=== PATIENT | female | born 1945 ===

== ENCOUNTER 2021-08-19 16:54 | Inpatient (IN) | payer SELFPAY ==
--- NOTE | 2021-08-19 17:05 | Emergency Department Report ---
ED General Adult HPI - General Chief complaint: Weakness Stated complaint: HYPERGLYCEMIA/WEAKNESS Time Seen by Provider: 08/19/21 17:02 Source: patient, family, EMS (Verbal report received from emergency medical services. EMS documentation not available at time of chart dictation ), RN notes reviewed Mode of arrival: Stretcher Limitations: Language Barrier (Patient requests that grandson translate) - History of Present Illness Initial comments: The patient was evaluated in the emergency department for symptoms described in the history of present illness. He/she was evaluated in the context of the global COVID-19 pandemic, which necessitated consideration that the patient might be at risk for infection with the virus that causes COVID-19. Inst itutional protocols and algorithms that pertain to the evaluation of patients at risk for COVID-19 are in a state of rapid change based on information released by regulatory bodies including the CDC and federal and state organizations. These policies and algorithms were followed during the patient's care in the emergency department. Please note that these policies, procedures and recommendations changed on a rapid basis. The patient is accompanied by her grandson, and gives consent and request that her grandson translate for her. This patient is a 76-year-old female, visiting from [facility], who is reportedly flying in from [place] to [place] today. Her past medical history includes h ypertension, high cholesterol and diabetes. She does not know the names of all the medications that she takes. She is reportedly COVID-19 vaccinated. History obtained from patient, grandson, and from EMS. Patient reportedly felt weak and dizzy earlier on today. The patient complains of mild headache. She denies chest pain. She denies abdominal pain. She denies loss of vision. She denies hematemesis and bright red blood per rectum. She denies focal extremity weakness/numbness. As per verbal report from EMS, patient had a high blood sugar level. They also report the patient's heart rate was fluctuating between the 20s and 80s. They were not able to capture the patient's bradycardia. Patient does not specifically recall the name of her antihypertensive medication. She appears to be on a statin, and possibly metformin. -: This afternoon - Related Data Allergies Allergy/AdvReac Type Severity Reaction Status Date / Time No Known Allergies Allergy Verified 08/19/21 19:30 ED Review of Systems ROS: Stated complaint: HYPERGLYCEMIA/WEAKNESS Other details as noted in HPI Constitutional: malaise. denies: fever Eyes: denies: eye discharge ENT: denies: epistaxis Respiratory: denies: cough Cardiovascular: syncope (Lightheadedness and near syncope). denies: chest pain Gastrointestinal: denies: abdominal pain, hematemesis, melena, hematochezia Genitourinary: denies: dysuria Musculoskeletal: arthralgia Neurological: headache, weakness Hematological/Lymphatic: denies: easy bleeding ED Physical Exam - General Limitations: Language Barrier General appearance: alert, in no apparent distress - Head Head exam: Present: atraumatic, normocephalic - Eye Eye exam: Present: normal appearance, EOMI, other (Visual acuity is intact to finger counting and color perception at a close distance). Absent: nystagmus - ENT ENT exam: Present: normal exam, normal orophraynx, mucous membranes moist, normal external ear exam - Neck Neck exam: Present: normal inspection, full ROM. Absent: tenderness, meningismus - Respiratory Respiratory exam: Present: normal lung sounds bilaterally. Absent: respiratory distress, wheezes, rales, rhonchi, stridor, decreased breath sounds - Cardiovascular Cardiovascular Exam: Present: regular rate, normal rhythm, normal heart sounds. Absent: bradycardia, tachycardia, irregular rhythm, systolic murmur, diastolic murmur, rubs, gallop - GI/Abdominal GI/Abdominal exam: Present: soft. Absent: distended, tenderness, guarding, rebound, rigid, pulsatile mass - Extremities Exam Extremities exam: Present: normal inspection, full ROM, other (2+ pulses noted in the bilateral upper and lower extremities. There is no palpable cord. negative Homans sign. Muscular compartments are soft. The pelvis is stable.). Absent: pedal edema, calf tenderness - Back Exam Back exam: Present: normal inspection. Absent: tenderness, CVA tenderness (R), CVA tenderness (L), paraspinal tenderness, vertebral tenderness - Neurological Exam Neurological exam: Present: alert, other (There is no facial droop. The tongue is midline. EOMI. 5 out of 5 strength in 4 extremities) - Psychiatric Psychiatric exam: Present: flat affect - Skin Skin exam: Present: warm, dry, intact, normal color. Absent: rash ED Course Vital Signs 08/19/21 08/19/21 08/19/21 17:50 18:01 18:07 Temperature 97.2 F L Pulse Rate 79 Respiratory 22 Rate Blood Pressure Blood Pressure 144/76 [Left] O2 Sat by Pulse 98 99 98 Oximetry 08/19/21 08/19/21 08/19/21 18:15 18:31 18:45 Temperature Pulse Rate 66 72 72 Respiratory 17 18 15 Rate Blood Pressure 144/76 146/76 121/84 Blood Pressure [Left] O2 Sat by Pulse 99 97 98 Oximetry 08/19/21 08/19/21 08/20/21 19:01 19:15 00:57 Temperature Pulse Rate 71 71 Respiratory 19 17 Rate Blood Pressure 153/82 161/82 Blood Pressure [Left] O2 Sat by Pulse 98 99 88 Oximetry - Reevaluation(s) Reevaluation #1: 08/19/21 17:43 Differential diagnosis, including but not limited to: Orthostasis, vagal event, structural cardiac disease, anemia, acute coronary syndrome, migraine headache, tension headache, cluster headache, intracranial hemorrhage, pulmonary embolism Assessment and plan 76-year-old elderly female with multiple cardiovascular risk factors, presenting with lightheadedness, dizziness and near syncope. Her physical exam/neurologic exam is nondiagnostic and nonfocal/unremarkable. Blood pressure and heart rate are acceptable at this time. Obtain appropriate laboratory studies, repeat EKG, CT scan of the brain, CT scan of the chest, and reassess. I discussed this with the patient and her grandson. They articulated understanding. They are agreeable to the plan of care 08/19/21 19:59 Family member at the bedside, Ms. Tatianna Jameson; [phone] Patient also has a son by the name of Mr. Gerald Jameson [phone] Family members endorse that family lives in [place] and they would like to see about having the patient transferred to [facility] for convenience in close proximity to family Contacted [facility] transfer center. [facility] is full, with multiple pending admissions in the emergency room, and they are not able to accommodate an admission. We discussed this with the patient and her daughter. They are agreeable to admission and hospitalization. Patient's daughter has asked if a family member can stay with the patient overnight. Contacted nursing transfer and pumphouse operator chief, Ms. Junito Mckenna She advises that for tonight only, the patient can have a single adult return to vendor with her when she goes upstairs. While in the emergency room, she will be permitted guests as per our usual emergency medicine policy. Hospital physician, Dr. Wendy Chong to admit 08/19/21 20:44 ct scan brain negative for acute findings CT scan chest negative for pulmonary embolism or acute or emergent findings. Incidental findings noted. They can be followed up as an outpatient. Updated patient and daughter. Hospital team to admit. All questions answered. - EJ/Peripheral Line Arm R Time Out Performed: Yes Indications: multiple IV sites needed Skin Cleansed in Sterile Fashion: Yes Size: 20 Dressing Placed: Tegaderm Patient Tolerated Procedure: well ED Medical Decision Making - Lab Data Result diagrams: 08/20/21 05:42 08/20/21 05:42 Vital Signs 08/19/21 18:07 Temperature 97.2 F L Pulse Rate 79 Respiratory 22 Rate Blood Pressure 144/76 [Left] O2 Sat by Pulse 98 Oximetry Lab Results 08/19/21 Range/Units 17:20 VBG pH 7.315 L (7.320-7.420) Lab Results 08/19/21 08/19/21 08/19/21 Range/Units 17:20 17:20 17:20 WBC 12.3 H (4.5-11.0) K/mm3 RBC 3.84 (3.65-5.03) M/mm3 Hgb 11.6 (10.1-14.3) gm/dl Hct 34.8 (30.3-42.9) % MCV 91 (79-97) fl MCH 30 (28-32) pg MCHC 33 (30-34) % RDW 14.4 (13.2-15.2) % Plt Count 192 (140-440) K/mm3 PT 12.8 (12.2-14.9) Sec. INR 0.85 L (0.87-1.13) D-Dimer 1647.85 H (0-234) ng/mlDDU VBG pH (7.320-7.420) Sodium 137 (137-145) mmol/L Potassium 3.8 (3.6-5.0) mmol/L Chloride 102.1 (98-107) mmol/L Carbon Dioxide 24 (22-30) mmol/L Anion Gap 15 mmol/L BUN 29 H (7-17) mg/dL Creatinine 1.1 (0.6-1.2) mg/dL Estimated GFR 48 ml/min BUN/Creatinine Ratio 26 % Glucose 195 H (65-100) mg/dL Calcium 9.0 (8.4-10.2) mg/dL Magnesium 1.80 (1.7-2.3) mg/dL Total Bilirubin 0.40 (0.1-1.2) mg/dL AST 17 (5-40) units/L ALT 17 (7-56) units/L Alkaline Phosphatase 153 H (35-129) units/L Troponin T < 0.010 (0.00-0.029) ng/mL NT-Pro-B Natriuret Pep (0-900) pg/mL Total Protein 6.1 L (6.3-8.2) g/dL Albumin 3.6 L (3.9-5) g/dL Albumin/Globulin Ratio 1.4 % TSH (0.270-4.200) mlU/mL 08/19/21 08/19/21 08/19/21 Range/Units 17:20 17:20 17:20 WBC (4.5-11.0) K/mm3 RBC (3.65-5.03) M/mm3 Hgb (10.1-14.3) gm/dl Hct (30.3-42.9) % MCV (79-97) fl MCH (28-32) pg MCHC (30-34) % RDW (13.2-15.2) % Plt Count (140-440) K/mm3 PT (12.2-14.9) Sec. INR (0.87-1.13) D-Dimer (0-234) ng/mlDDU VBG pH 7.315 L (7.320-7.420) Sodium (137-145) mmol/L Potassium (3.6-5.0) mmol/L Chloride (98-107) mmol/L Carbon Dioxide (22-30) mmol/L Anion Gap mmol/L BUN (7-17) mg/dL Creatinine (0.6-1.2) mg/dL Estimated GFR ml/min BUN/Creatinine Ratio % Glucose (65-100) mg/dL Calcium (8.4-10.2) mg/dL Magnesium (1.7-2.3) mg/dL Total Bilirubin (0.1-1.2) mg/dL AST (5-40) units/L ALT (7-56) units/L Alkaline Phosphatase (35-129) units/L Troponin T (0.00-0.029) ng/mL NT-Pro-B Natriuret Pep 683.2 (0-900) pg/mL Total Protein (6.3-8.2) g/dL Albumin (3.9-5) g/dL Albumin/Globulin Ratio % TSH 4.980 H (0.270-4.200) mlU/mL - EKG Data -: EKG Interpreted by Wi EKG shows normal: sinus rhythm Rate: normal - EKG Data When compared to previous EKG there are: previous EKG unavailable 08/19/21 18:59 The EKG is interpreted at 17: 54 This is a sinus rhythm, with a rate of 79 bpm. There is a left axis deviation. There is left ventricular hypertrophy. The QTC is 5 2 1 ms. There is motion artifact. This is an abnormal EKG. This is not a STEMI. - Radiology Data Radiology results: pending, report reviewed, image reviewed CT head/brain wo con INDICATION / CLINICAL INFORMATION: 76 years Female; scales and near syncope. TECHNIQUE: Routine CT head without contrast. All CT scans at this location are performed using CT dose reduction for [email or web address] by means of automated exposure control. COMPARISON: None. FINDINGS: BRAIN / INTRACRANIAL CONTENTS: There is mild cerebral white matter disease most consistent with microvascular angiopathy. Is also mild cerebral atrophy with associated mild prominence of the ventricular system. The motion degrades the image quality. However, there is no clear CT evidence of acute intracranial hemorrhage or significant mass effect. ORBITS: No significant abnormality of visualized orbits. SINUSES / MASTOIDS: No significant abnormality in the visualized paranasal sinuses or mastoid air cells. CRANIOCERVICAL JUNCTION: No significant abnormality. ADDITIONAL FINDINGS: None. IMPRESSION: 1. 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 Signer Name: Evelio Thompson MD Signed: 08/19/2021 7:14 PM Workstation Name: [id number] CTA CHEST WITH IV CONTRAST INDICATION: near syncope, bradycardia, left axis deviation CONTRAST: 100 cc Omnipaque 350 IV COMPARISON: None available. Three-plane MIP reconstructions were produced. All CT scans at this location are performed using CT dose reduction for ALARA by means of automated exposure control. FINDINGS: Multiple old left rib fractures. No significant axillary or chest wall soft tissue abnormalities. Views of the upper abdomen show mild carmita lithiasis without acute change. Mild fatty infiltration of liver. Moderate coronary artery calcifications. No mediastinal or hilar masses. No obvious endobronchial lesions. No pneumothorax or pneumomediastinum. No pleural effusions. Lung almazan show bilateral atelectasis versus scarring, most no ticeable in the right lower lobe. Pneumonitis is not strongly favored. Minimal right upper lobe nodule measuring less than 3 mm on images 40 and 41 of series 2. Tiny density in the lower portion of the left major fissure unlikely to be significant. Aorta shows atherosclerotic changes. Aneurysmal dilatation is seen. The ascending aorta diameter is 4.3 cm, mid arch diameter 3 cm, mid descending diameter 3 cm, and diameter at the hiatus 3 cm. Abdominal aorta shows no aneurysmal dilatation though there is mild focal ectasia of the lower abdominal aorta to 2.5 cm. No evidence of dissection or other acute abnormality. Good filling of the visualized major branches. Good opacification of pulmonary arterial system. No convincing evidence of pulmonary thromboembolism. IMPRESSION: 1. No evidence of pulmonary thromboembolism 2. Atelectasis versus scarring as discussed above with pneumonitis is not strongly favored 3. Minimal pulmonary nodularity of unlikely significance 4. Aneurysmal dilatation of the ascending aorta without acute change seen INCIDENTAL PULMONARY NODULE RECOMMENDATIONS Solid Nodule size* <6 mm -- Single or Multiple - Low Risk Patient: No routine follow-up - High Risk Patient: Optional CT at 12 months Note These recommendations do not apply to lung cancer screening, patients with immunosuppression, or patients with known primary cancer. Note Newly detected indeterminate nodule in persons 35 years of age or older. Persons under the age of 35 should not receive follow-up unless there is a known primary cancer. Low Risk Patient -- minimal or absent history of smoking and of other known risk factors. High Risk Patient -- history of smoking or of other known risk factors. *Dimensions are average of long and short axes, rounded to the nearest millimeter. Based on 2017 Fleischner Society Guidelines found in Radiology 2017 284:228-243. htt ps://doi.[email or web address]/radiol.7026825212 Signer Name: Edgar Johnson MD Signed: 08/19/2021 7:38 PM Workstation Name: [id number] Critical care attestation.: If time is entered above; I have spent that time in minutes in the direct care of this critically ill patient, excluding procedure time. ED Disposition Clinical Impression: Near syncope, History of bradycardia Disposition: ADMITTED INPATIENT Is pt being admited?: Yes Condition: Good
[2021-08-19] MEDS ORDERED: ACETAMINOPHEN 325 MG TAB PO ONE (17:44)
[2021-08-19 18:10] LABS: Hematocrit 34.8 % (30.3-42.9); Hemoglobin 11.6 gm/dl (10.1-14.3); Mean Corpuscular HGB Conc 33 % (30-34); Mean Corpuscular Volume 91 fl (79-97); Platelet Count 192 K/mm3 (140-440); Red Blood Count 3.84 M/mm3 (3.65-5.03); Red Cell Distribution Width 14.4 % (13.2-15.2)
[2021-08-19 18:18] LABS: INR 0.85 (0.87-1.13)
[2021-08-19 18:35] LABS: Alanine Aminotransferase 17 units/L (7-56); Albumin 3.6 g/dL (3.9-5); BUN/Creatinine Ratio 26; Blood Urea Nitrogen 29 mg/dL (7-17); Hemolysis Index 3
[2021-08-19] MEDS ORDERED: SODIUM CHLORIDE 0.9% 500 ML 500 ML IV ONE (18:58)
--- NOTE | 2021-08-19 20:18 | Cat Scan Report ---
CT head/brain wo con INDICATION / CLINICAL INFORMATION: 76 years Female; scales and near syncope. TECHNIQUE: Routine CT head without contrast. All CT scans at this location are performed using CT dos e reduction for ALARA by means of automated exposure control. COMPARISON: None. FINDINGS: BRAIN / INTRACRANIAL CONTENTS: There is mild cerebral white matter disease most consistent with micro vascular angiopathy. Is also mild cerebral atrophy with associated mild prominence of the ventricular system. The motion degrades the image quality. However, there is no clear CT evidence of acute intra cranial hemorrhage or significant mass effect. ORBITS: No significant abnormality of visualized orbits. SINUSES / MASTOIDS: No significant abnormality in the visualized paranasal sinuses or mastoid air sarah ls. CRANIOCERVICAL JUNCTION: No significant abnormality. ADDITIONAL FINDINGS: None. IMPRESSION: 1. 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 Signer Name: Evelio Thompson MD Signed: 08/19/2021 8:14 PM Workstation Name: [id number]
--- NOTE | 2021-08-19 20:42 | Cat Scan Report ---
CTA CHEST WITH IV CONTRAST INDICATION: near syncope, bradycardia, left axis deviation CONTRAST: 100 cc Omnipaque 350 IV COMPARISON: None available. Three-plane MIP reconstructions were produced. All CT scans at this location are performed using CT d ose reduction for DARRENRA by means of automated exposure control. FINDINGS: Multiple old left rib fractures. No significant axillary or chest wall soft tissue abnormal ities. Views of the upper abdomen show mild cholelithiasis without acute change. Mild fatty infiltrat ion of liver. Moderate coronary artery calcifications. No mediastinal or hilar masses. No obvious endobronchial les ions. No pneumothorax or pneumomediastinum. No pleural effusions. Lung almazan show bilateral atelectasis versus scarring, most noticeable in the right lower lobe. Pneu monitis is not strongly favored. Minimal right upper lobe nodule measuring less than 3 mm on images 4 0 and 41 of series 2. Tiny density in the lower portion of the left major fissure unlikely to be sign ificant. Aorta shows atherosclerotic changes. Aneurysmal dilatation is seen. The ascending aorta diameter is 4 .3 cm, mid arch diameter 3 cm, mid descending diameter 3 cm, and diameter at the hiatus 3 cm. Abdomin al aorta shows no aneurysmal dilatation though there is mild focal ectasia of the lower abdominal aor ta to 2.5 cm. No evidence of dissection or other acute abnormality. Good filling of the visualized ma [place] branches. Good opacification of pulmonary arterial system. No convincing evidence of pulmonary thromboembolism. IMPRESSION: 1. No evidence of pulmonary thromboembolism 2. Atelectasis versus scarring as discussed above with pneumonitis is not strongly favored 3. Minimal pulmonary nodularity of unlikely significance 4. Aneurysmal dilatation of the ascending aorta without acute change seen INCIDENTAL PULMONARY NODULE RECOMMENDATIONS Solid Nodule size* <6 mm -- Single or Multiple - Low Risk Patient: No routine follow-up - High Risk Patient: Optional CT at 12 months Note These recommendations do not apply to lung cancer screening, patients with immunosuppression, o r patients with known primary cancer. Note Newly detected indeterminate nodule in persons 35 years of age or older. Persons under the age of 35 should not receive follow-up unless there is a known primary cancer. Low Risk Patient -- minimal or absent history of smoking and of other known risk factors. High Risk Patient -- history of smoking or of other known risk factors. *Dimensions are average of long and short axes, rounded to the nearest millimeter. Based on 2017 Fleischner Society Guidelines found in Radiology 2017 284:228-243. https://doi.[email or web address] [email or web address] Signer Name: Edgar Johnson MD Signed: 08/19/2021 8:38 PM Workstation Name: [id number]
[2021-08-19] MEDS ORDERED: ACETAMINOPHEN 325 MG TAB PO PRN (21:43)
[2021-08-19] MEDS ORDERED: MORPHINE 4 MG/1 ML INJ IV PRN (21:43)
[2021-08-19] MEDS ORDERED: MAGNESIUM HYDROXIDE (MOM) ORAL LIQD UDC PO PRN (21:43)
[2021-08-19] MEDS ORDERED: ONDANSETRON 4 MG/2 ML INJ IV PRN (21:43)
[2021-08-19] MEDS ORDERED: DEXTROSE 50% IN WATER (25GM) 50 ML SYRINGE IV PRN (21:43)
[2021-08-19] MEDS ORDERED: MORPHINE 2 MG/1 ML INJ IV PRN (21:43)
--- NOTE | 2021-08-19 21:52 | History and Physical Report ---
History of Present Illness Date of examination: 08/19/21 Date of admission: 08/19/2021 Chief complaint: Weakness Dizziness History of present illness: 76-year-old female with known history of hypertension, hyperlipidemia and diabetes mellitus visiting from [facility] and flying from [place] to [place] today presents in the emergency room today complaining of dizziness and generalized weakness. She has also had some mild headache but denies any dizziness, denies any chest pain or shortness of breath, denies any diaphoresis. She denies any nausea or vomiting, no abdominal pain, no hematuria or dysuria, no bright red blood per rectum and no diarrhea. According to EMS. Patient had a high blood glucose level and heart rate was also fluctuating between the 20s and the 80s enroute to the hospital. Most of the history was obtained from the granddaughter was by the bedside as patient is on able to speak Algerian. Work-up in the emergency room today, significant findings on the labs includes BUN of 29 creatinine of 1.1, TSH of 4.98, WBC of 12.3. D-dimer 1647. Urinalysis still pending. CT scan of the head shows mild microvascular angiopathy and cerebral atrophy without CT evidence of acute intracranial hemorrhage. CT angiogram of the chest shows no evidence of pulmonary thromboembolism. Aneurysmal dilatation of the ascending aorta without acute change. Past History Past Medical History: diabetes, hypertension, hyperlipidemia Past Surgical History: No surgical history Social history: no significant social history Family history: no significant family history Medications and Allergies Allergies Allergy/AdvReac Type Severity Reaction Status Date / Time No Known Allergies Allergy Verified 08/19/21 19:30 Review of Systems Constitutional: no fever, no chills Ears, nose, mouth and throat: no nasal congestion, no sore throat Cardiovascular: no chest pain, no palpitations Respiratory: no cough, no shortness of breath Gastrointestinal: no abdominal pain, no nausea, no vomiting, no diarrhea Genitourinary Female: no pelvic pain, no flank pain, no dysuria, no hematuria Musculoskeletal: no neck pain, no low back pain Integumentary: no rash, no pruritis Neurological: syncope, no headaches, no confusion Psychiatric: no anxiety, no depression Endocrine: no polyphagia, no polydipsia, no polyuria, no nocturia Exam - Constitutional Vitals: Temp Pulse Resp BP Pulse Ox 97.2 F L 79 22 144/76 98 08/19/21 18:07 08/19/21 18:07 08/19/21 18:07 08/19/21 18:07 08/19/21 18:07 General appearance: Present: no acute distress, well-nourished - EENT Eyes: Present: PERRL, EOM intact. Absent: scleral icterus ENT: hearing intact, clear oral mucosa, dentition normal - Neck Neck: Present: supple, normal ROM - Respiratory Respiratory effort: normal Respiratory: bilateral: CTA - Cardiovascular Rhythm: regular Heart Sounds: Present: S1 & S2. Absent: gallop, systolic murmur, diastolic murmur, rub, click - Extremities Extremities: no ischemia, pulses intact, pulses symmetrical, No edema, normal temperature, normal color, Full ROM Peripheral Pulses: within normal limits - Abdominal General gastrointestinal: Present: soft, non-tender, non-distended, normal bowel sounds. Absent: mass - Integumentary Integumentary: Present: clear, warm, dry, normal turgor. Absent: rash - Musculoskeletal Musculoskeletal: strength equal bilaterally - Psychiatric Psychiatric: appropriate mood/affect, intact judgment & insight, memory intact, cooperative - Neurologic Neurologic: CNII-XII intact, no focal deficits, moves all extremities HEART Score - HEART Score Troponin: Troponin T < 0.010 ng/mL (0.00-0.029) 08/19/21 17:20 Results - Labs CBC & Chem 7: 08/19/21 17:20 08/19/21 17:20 Labs: Abnormal lab results 08/19/21 08/19/21 08/19/21 Range/Units 17:20 17:20 17:20 WBC 12.3 H (4.5-11.0) K/mm3 INR 0.85 L (0.87-1.13) D-Dimer 1647.85 H (0-234) ng/mlDDU VBG pH (7.320-7.420) BUN 29 H (7-17) mg/dL Glucose 195 H (65-100) mg/dL Alkaline Phosphatase 153 H (35-129) units/L Total Protein 6.1 L (6.3-8.2) g/dL Albumin 3.6 L (3.9-5) g/dL TSH (0.270-4.200) mlU/mL 08/19/21 08/19/21 Range/Units 17:20 17:20 WBC (4.5-11.0) K/mm3 INR (0.87-1.13) D-Dimer (0-234) ng/mlDDU VBG pH 7.315 L (7.320-7.420) BUN (7-17) mg/dL Glucose (65-100) mg/dL Alkaline Phosphatase (35-129) units/L Total Protein (6.3-8.2) g/dL Albumin (3.9-5) g/dL TSH 4.980 H (0.270-4.200) mlU/mL Assessment and Plan Assessment: 1. Dehydration 2. Presyncope 3. Bradycardia 4. Hypertension 5. Diabetes mellitus 6. Hyperlipidemia. Plan: 1. Patient admitted and placed on telemetry. 2. Commenced on IV fluid. We will monitor vital signs including orthostatic closely. 3. We will resume routine home medications once reconciled. 4. Patient placed on sliding scale insulin, will monitor Accu-Cheks. DVT Prophylaxis:SQ heparin Code Status: Full Code.
[2021-08-19] MEDS: INSULIN LISPRO 100 UNIT/ML SUB-Q SCH (22:15)
[2021-08-19 22:34] LABS: Basophils % (Manual) 0 % (0.0-1.8); Eosinophils % (Manual) 0 % (0.0-4.3); Total Cells Counted 100
[2021-08-19 22:35] LABS: Platelet Estimate Consistent w Auto; RBC Morphology Normal
[2021-08-19 23:19] LABS: Bilirubin,Urine NEG (Negative); Blood,Urine NEG (Negative); Color,Urine Yellow (Yellow); Protein,Urine <15 mg/dL mg/dL (Negative); Urobilinogen,Urine < 2.0 mg/dL (<2.0)
[2021-08-19 23:20] LABS: WBC,Urine < 1.0 /HPF (0.0-6.0)
[2021-08-20] MEDS ORDERED: SODIUM CHLORIDE 0.9% 1000 ML 1,000 ML IV SCH (06:00)
[2021-08-20 06:13] LABS: Hematocrit 35.5 % (30.3-42.9); Hemoglobin 11.9 gm/dl (10.1-14.3); Mean Corpuscular HGB Conc 34 % (30-34); Mean Corpuscular Volume 91 fl (79-97); Platelet Count 198 K/mm3 (140-440); Red Cell Distribution Width 14.4 % (13.2-15.2)
[2021-08-20 06:32] LABS: BUN/Creatinine Ratio 21; Blood Urea Nitrogen 19 mg/dL (7-17); Calcium 9.4 mg/dL (8.4-10.2); Hemolysis Index 16
[2021-08-20 07:06] LABS: Total Cells Counted 100
[2021-08-20 07:07] LABS: Basophils % (Manual) 0 % (0.0-1.8); Eosinophils % (Manual) 0 % (0.0-4.3); Platelet Estimate Consistent w Auto; RBC Morphology Normal
[2021-08-20] MEDS: INSULIN LISPRO 100 UNIT/ML SUB-Q SCH ×2 (07:55→12:06)
--- NOTE | 2021-08-20 09:50 | Progress Note ---
Assessment and Plan Assessment and plan: 76-year-old female with known history of hypertension, hyperlipidemia and diabetes mellitus visiting from [facility] and flying from [place] to [place] today presents in the emergency room today complaining of dizziness and generalized weakness. She has also had some mild headache but denies any dizz iness. 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 Work-up in the emergency room today, significant findings on the labs includes BUN of 29 creatinine of 1.1, TSH of 4.98, WBC of 12.3. D- dimer 1647. CT angiogram of the chest shows no evidence of pulmonary thromb oembolism. Aneurysmal dilatation of the ascending aorta without acute change. Symptomatic bradycardia Presyncope Hypertension Diabetes mellitus type 2 Hyperlipidemia 08/20/2021. Telemetry monitoring reveals normal sinus rhythm in the 90s. Continue Accu-Cheks and sliding scale insulin. Follow-up carotid Dopplers. PT/OT evaluation. CT scan essentially unremarkable. History Interval history: No new issues overnight Hospitalist Physical - Constitutional Vitals: Temp Pulse Resp BP Pulse Ox 98.4 F 87 20 167/97 96 08/20/21 04:26 08/20/21 04:26 08/20/21 04:26 08/20/21 04:26 08/20/21 04:26 General appearance: Present: no acute distress, well-nourished - EENT Eyes: Present: PERRL, EOM intact ENT: hearing intact, clear oral mucosa, dentition normal - Neck Neck: Present: supple, normal ROM - Respiratory Respiratory effort: normal Respiratory: bilateral: CTA - Cardiovascular Rhythm: regular Heart Sounds: Present: S1 & S2. Absent: gallop, rub - Extremities Extremities: no ischemia, No edema, Full ROM - Abdominal General gastrointestinal: soft, non-tender, non-distended, normal bowel sounds - Integumentary Integumentary: Present: clear, warm, dry - Neurologic Neurologic: CNII-XII intact, moves all extremities HEART Score - HEART Score Troponin: Troponin T < 0.010 ng/mL (0.00-0.029) 08/19/21 17:20 Results - Labs CBC & Chem 7: 08/20/21 05:42 08/20/21 05:42 Labs: Laboratory Last Values WBC 10.6 K/mm3 (4.5-11.0) 08/20/21 05:42 RBC 3.90 M/mm3 (3.65-5.03) 08/20/21 05:42 Hgb 11.9 gm/dl (10.1-14.3) 08/20/21 05:42 Hct 35.5 % (30.3-42.9) 08/20/21 05:42 MCV 91 fl (79-97) 08/20/21 05:42 MCH 31 pg (28-32) 08/20/21 05:42 MCHC 34 % (30-34) 08/20/21 05:42 RDW 14.4 % (13.2-15.2) 08/20/21 05:42 Plt Count 198 K/mm3 (140-440) 08/20/21 05:42 Add Manual Diff Complete 08/20/21 05:42 Total Counted 100 08/20/21 05:42 Seg Neuts % (Manual) 72.0 % (40.0-70.0) H 08/20/21 05:42 Band Neutrophils % 0 % 08/20/21 05:42 Lymphocytes % (Manual) 19.0 % (13.4-35.0) 08/20/21 05:42 Reactive Lymphs % (Man) 0 % 08/20/21 05:42 Monocytes % (Manual) 9.0 % (0.0-7.3) H 08/20/21 05:42 Eosinophils % (Manual) 0 % (0.0-4.3) 08/20/21 05:42 Basophils % (Manual) 0 % (0.0-1.8) 08/20/21 05:42 Metamyelocytes % 0 % 08/20/21 05:42 Myelocytes % 0 % 08/20/21 05:42 Promyelocytes % 0 % 08/20/21 05:42 Blast Cells % 0 % 08/20/21 05:42 Nucleated RBC % Not Reportable 08/20/21 05:42 Seg Neutrophils # Man 7.6 K/mm3 (1.8-7.7) 08/20/21 05:42 Band Neutrophils # 0.0 K/mm3 08/20/21 05:42 Lymphocytes # (Manual) 2.0 K/mm3 (1.2-5.4) 08/20/21 05:42 Abs React Lymphs (Man) 0.0 K/mm3 08/20/21 05:42 Monocytes # (Manual) 1.0 K/mm3 (0.0-0.8) H 08/20/21 05:42 Eosinophils # (Manual) 0.0 K/mm3 (0.0-0.4) 08/20/21 05:42 Basophils # (Manual) 0.0 K/mm3 (0.0-0.1) 08/20/21 05:42 Metamyelocytes # 0.0 K/mm3 08/20/21 05:42 Myelocytes # 0.0 K/mm3 08/20/21 05:42 Promyelocytes # 0.0 K/mm3 08/20/21 05:42 Blast Cells # 0.0 K/mm3 08/20/21 05:42 WBC Morphology Not Reportable 08/20/21 05:42 Hypersegmented Neuts Not Reportable 08/20/21 05:42 Hyposegmented Neuts Not Reportable 08/20/21 05:42 Hypogranular Neuts Not Reportable 08/20/21 05:42 Smudge Cells Not Reportable 08/20/21 05:42 Toxic Granulation Not Reportable 08/20/21 05:42 Toxic Vacuolation Not Reportable 08/20/21 05:42 Dohle Bodies Not Reportable 08/20/21 05:42 Pelger-Huet Anomaly Not Reportable 08/20/21 05:42 Rosi Rods Not Reportable 08/20/21 05:42 Platelet Estimate Consistent w auto 08/20/21 05:42 Clumped Platelets Not Reportable 08/20/21 05:42 Plt Clumps, EDTA Not Reportable 08/20/21 05:42 Large Platelets Not Reportable 08/20/21 05:42 Giant Platelets Not Reportable 08/20/21 05:42 Platelet Satelliting Not Reportable 08/20/21 05:42 Plt Morphology Comment Not Reportable 08/20/21 05:42 RBC Morphology Normal 08/20/21 05:42 Dimorphic RBCs Not Reportable 08/20/21 05:42 Polychromasia Not Reportable 08/20/21 05:42 Hypochromasia Not Reportable 08/20/21 05:42 Poikilocytosis Not Reportable 08/20/21 05:42 Anisocytosis Not Reportable 08/20/21 05:42 Microcytosis Not Reportable 08/20/21 05:42 Macrocytosis Not Reportable 08/20/21 05:42 Spherocytes Not Reportable 08/20/21 05:42 Pappenheimer Bodies Not Reportable 08/20/21 05:42 Sickle Cells Not Reportable 08/20/21 05:42 Target Cells Not Reportable 08/20/21 05:42 Tear Drop Cells Not Reportable 08/20/21 05:42 Ovalocytes Not Reportable 08/20/21 05:42 Helmet Cells Not Reportable 08/20/21 05:42 [place] Bodies Not Reportable 08/20/21 05:42 [place] Rings Not Reportable 08/20/21 05:42 [place] Cells Not Reportable 08/20/21 05:42 Bite Cells Not Reportable 08/20/21 05:42 Crenated Cell Not Reportable 08/20/21 05:42 Elliptocytes Not Reportable 08/20/21 05:42 Acanthocytes (Spur) Not Reportable 08/20/21 05:42 Rouleaux Not Reportable 08/20/21 05:42 Hemoglobin C Crystals Not Reportable 08/20/21 05:42 Schistocytes Not Reportable 08/20/21 05:42 Malaria parasites Not Reportable 08/20/21 05:42 Matt Bodies Not Reportable 08/20/21 05:42 Hem Pathologist Commnt No 08/20/21 05:42 PT 12.8 Sec. (12.2-14.9) 08/19/21 17:20 INR 0.85 (0.87-1.13) L 08/19/21 17:20 D-Dimer 1647.85 ng/mlDDU (0-234) H 08/19/21 17:20 VBG pH 7.315 (7.320-7.420) L 08/19/21 17:20 Sodium 140 mmol/L (137-145) 08/20/21 05:42 Potassium 3.6 mmol/L (3.6-5.0) 08/20/21 05:42 Chloride 102.4 mmol/L (98-107) 08/20/21 05:42 Carbon Dioxide 27 mmol/L (22-30) 08/20/21 05:42 Anion Gap 14 mmol/L 08/20/21 05:42 BUN 19 mg/dL (7-17) H 08/20/21 05:42 Creatinine 0.9 mg/dL (0.6-1.2) 08/20/21 05:42 Estimated GFR > 60 ml/min 08/20/21 05:42 BUN/Creatinine Ratio 21 % 08/20/21 05:42 Glucose 192 mg/dL (65-100) H 08/20/21 05:42 POC Glucose 179 mg/dL (70-105) H 08/20/21 07:22 Calcium 9.4 mg/dL (8.4-10.2) 08/20/21 05:42 Magnesium 1.80 mg/dL (1.7-2.3) 08/19/21 17:20 Total Bilirubin 0.40 mg/dL (0.1-1.2) 08/19/21 17:20 AST 17 units/L (5-40) 08/19/21 17:20 ALT 17 units/L (7-56) 08/19/21 17:20 Alkaline Phosphatase 153 units/L (35-129) H 08/19/21 17:20 Troponin T < 0.010 ng/mL (0.00-0.029) 08/19/21 17:20 NT-Pro-B Natriuret Pep 683.2 pg/mL (0-900) 08/19/21 17:20 Total Protein 6.1 g/dL (6.3-8.2) L 08/19/21 17:20 Albumin 3.6 g/dL (3.9-5) L 08/19/21 17:20 Albumin/Globulin Ratio 1.4 % 08/19/21 17:20 TSH 4.980 mlU/mL (0.270-4.200) H 08/19/21 17:20 Urine Color Yellow (Yellow) 08/19/21 Unknown Urine Turbidity Clear (Clear) 08/19/21 Unknown Urine pH 7.0 (5.0-7.0) 08/19/21 Unknown Ur Specific [place] 1.012 (1.003-1.030) 08/19/21 Unknown Urine Protein <15 mg/dl mg/dL (Negative) 08/19/21 Unknown Urine Glucose (UA) Neg mg/dL (Negative) 08/19/21 Unknown Urine Ketones Neg mg/dL (Negative) 08/19/21 Unknown Urine Blood Neg (Negative) 08/19/21 Unknown Urine Nitrite Neg (Negative) 08/19/21 Unknown Urine Bilirubin Neg (Negative) 08/19/21 Unknown Urine Urobilinogen < 2.0 mg/dL (<2.0) 08/19/21 Unknown Ur Leukocyte Esterase Neg (Negative) 08/19/21 Unknown Urine WBC (Auto) < 1.0 /HPF (0.0-6.0) 08/19/21 Unknown Urine RBC (Auto) 1.0 /HPF (0.0-6.0) 08/19/21 Unknown U Epithel Cells (Auto) 5.0 /HPF (0-13.0) 08/19/21 Unknown Active Medications - Current Medications Current Medications: Generic Name Dose Route Start Last Admin Trade Name Freq PRN Reason Stop Dose Admin Acetaminophen 650 mg 08/19/21 21:43 08/20/21 05:16 Acetaminophen 325 Mg Tab PO 650 mg Q4H PRN Administration Pain MILD(1-3)/Fever >100.5/MILTON Dextrose 0 ml 08/19/21 21:43 Dextrose 50% In Water (25gm) 50 Ml Syringe IV Q30MIN PRN Hypoglycemia Protocol Sodium Chloride 1,000 mls @ 125 mls/hr 08/20/21 06:00 Nacl 0.9% 1000 Ml IV DIRECT TERESA Insulin Human Lispro 0 unit 08/19/21 22:00 08/20/21 07:55 Insulin Lispro 100 Unit/Ml SUB-Q 2 unit ACHS TERESA Administration Protocol Magnesium Hydroxide 30 ml 08/19/21 21:43 Magnesium Hydroxide (Mom) Oral Liqd Udc PO Q4H PRN Constipation Morphine Sulfate 2 mg 08/19/21 21:43 Morphine 2 Mg/1 Ml Inj IV Q4H PRN Pain, Moderate (4-6) Morphine Sulfate 4 mg 08/19/21 21:43 Morphine 4 Mg/1 Ml Inj IV Q4H PRN Pain , Severe (7-10) Ondansetron HCl 4 mg 08/19/21 21:43 Ondansetron 4 Mg/2 Ml Inj IV Q8H PRN Nausea And Vomiting Sodium Chloride 10 ml 08/19/21 22:00 08/20/21 08:53 Sodium Chloride 0.9% 10 Ml Flush Syringe IV 10 ml BID TERESA Administration Sodium Chloride 10 ml 08/19/21 21:43 Sodium Chloride 0.9% 10 Ml Flush Syringe IV PRN PRN LINE FLUSH
--- NOTE | 2021-08-20 10:47 | Discharge Summary ---
Providers - Providers Date of Admission: 08/20/21 00:13 Date of discharge: 08/20/21 Attending physician: ASHOK MCGEE 08/19/21 21:44 Consult to Dietitian/Nutrition [CONS] Routine Physician Instructions: Reason For Exam: Reason for Consult: Diet education Primary care physician: MANDI MARTINEZ Hospitalization Reason for admission: Dizziness Condition: Good Hospital course: 6-year-old female with known history of hypertension, hyperlipidemia and diabetes mellitus [facility] flying from [place] to [facility] today presents in the emergency room today complaining of dizziness and generalized weakness. She has also had some mild headache but denies any dizziness. 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 Work-up in the emergency room today, significant findings on the labs includes BUN of 29 creatinine of 1.1, TSH of 4.98, WBC of 12.3. D- dimer 1647. CT angiogram of the chest shows no evidence of pulmonary thromboembolism. Aneurysmal dilatation of the ascending aorta without acute change. Patient was admitted with diagnosis below Symptomatic bradycardia Presyncope Hypertension Diabetes mellitus type 2 Hyperlipidemia The patient was admitted for observation and underwent telemetry monitoring which revealed normal sinus rhythm in the 90s. Patient had a CT scan of the head that was found to be negative. Patient ambulated in the hospital without any signs of dizziness or presyncope. Etiology of dizziness/presyncope likely secondary to hypotension from dehydration. Patient received IV fluid hydration and is back to baseline. Patient is felt to have received maximal hospital benefit and will be discharged home. Dedicated discharge time 32 minutes. Disposition: 01 HOME / SELF CARE / HOMELESS Final Discharge Diagnosis (Prints w/discharge instructions): Symptomatic br adycardia. Presyncope. Hypertension. Diabetes mellitus type 2. Hyperlipidemia Core Measure Documentation - Palliative Care Palliative Care/ Comfort Measures: Not Applicable - Core Measures Any of the following diagnoses?: none Exam - Constitutional Vitals: Temp Pulse Resp BP Pulse Ox 98.4 F 87 20 167/97 96 08/20/21 04:26 08/20/21 04:26 08/20/21 04:26 08/20/21 04:26 08/20/21 04:26 General appearance: Present: no acute distress, well-nourished - EENT Eyes: Present: PERRL ENT: hearing intact, clear oral mucosa - Neck Neck: Present: supple, normal ROM - Respiratory Respiratory effort: normal Respiratory: bilateral: CTA - Cardiovascular Heart Sounds: Present: S1 & S2. Absent: rub, click - Extremities Extremities: pulses symmetrical, No edema Peripheral Pulses: within normal limits - Abdominal General gastrointestinal: Present: soft, non-tender, non-distended, normal bowel sounds Female genitourinary: Present: normal - Integumentary Integumentary: Present: clear, warm, dry - Musculoskeletal Musculoskeletal: gait normal, strength equal bilaterally - Psychiatric Psychiatric: appropriate mood/affect, intact judgment & insight - Neurologic Neurologic: CNII-XII intact, moves all extremities Plan Activity: advance as tolerated Weight Bearing Status: Weight Bear as Tolerated Diet: regular Follow up with: MANDI MARTINEZ MD [Primary Care Provider] - 7 Days
[2021-08-20 14:43] VITALS: BP 129/97
--- NOTE | 2021-08-21 10:41 | Electrocardiograph Report ---
[facility] Test Date: 2021-08-19 Test Time: 17:54:08 Pat Name: BENTLEY HITCHCOCKDepartment: Room: A383 1 Gender: F Freight Rate Clerk: [id number] : 1945 Requested By: SHAHRIAR VASQUEZ Order Number: [id number] Reading MD: Rush Fisher Measurements Intervals [place] Rate: 79 P: -26 [place]: 187 QRS: -48 QRSD: 107 T: 116 QT: 457 QTc: 521 Interpretive Statements Sinus rhythm Ventricular premature complex Left anterior fascicular block Left ventricular hypertrophy Prolonged QT interval No previous ECG available for comparison Electronically Signed On 08-21-2021 10:41:03 EDT by Rush Fisher
== END 2021-08-20 15:10 | disposition home or self-care (01) | DRG 641 ==
LOC: ED 16:54 → 3A 08-20 00:13
PROVIDERS: ADMIT Internal Medicine; ATTEND Hospitalist
DX: E86.0 Dehydration (principal); E78.5 Hyperlipidemia, unspecified; E11.9 Type 2 diabetes mellitus without complications; I95.9 Hypotension, unspecified; Z87.898 Personal history of other specified conditions; R00.1 Bradycardia, unspecified
CPT/HCPCS: 36415; 70450; 71275; 80048; 80053; 81001; 82805; 82962; 83735; 83880; 84443; 84484; 85007; 85025; 85379; 85610; 93005; 93306; G0378; Q9967; C8929; J1815